=== PATIENT | male | born 1960 | race Hispanic/Latino ===

== ENCOUNTER 2017-05-28 12:29 | Day surgery (SDC) | payer BC ==
[2017-05-22 13:25] VITALS: BMI 22.8
[2017-05-28] MEDS ORDERED: Propofol 10 mg/ml Inj (20 ML) ONE (13:00)
[2017-05-28] MEDS ORDERED: Methylene Blue 10 mg/mL(10ml) IV ONE (13:29)
[2017-05-28] MEDS ORDERED: Sodium Chloride 0.9% 1,000 ML IV SCH (13:45)
[2017-05-28] MEDS ORDERED: Midazolam 2 MG/2 ML VIAL ONE (13:46)
[2017-05-28] MEDS ORDERED: ePHEDrine 50 mg/ml Inj ONE (13:51)
[2017-05-28 15:07] VITALS: O2SAT 96
[2017-05-28 15:27] VITALS: BP 125/82; PULSE 89; RESP 18; TEMP 97.5
== END 2017-05-28 15:58 | disposition home or self-care (01) ==
LOC: ENDO 12:29
PROVIDERS: ATTEND Internal Medicine
DX: D12.2 Benign neoplasm of ascending colon (principal); D12.0 Benign neoplasm of cecum; D12.3 Benign neoplasm of transverse colon; K63.5 Polyp of colon; K64.8 Other hemorrhoids; Z86.010 Personal history of colon polyps
CPT/HCPCS: 45380; 45381; 45385; 88305; J2001; J2250; J2704; J3010; J7030; J7040 ×2